=== PATIENT | female | born 1945 ===

== ENCOUNTER 2016-08-18 11:56 | Emergency (ER) | payer MEDICARE, OTHER ==
[2016-08-18 11:56] VITALS: BMI 13.3
--- NOTE | 2016-08-18 12:13 | C.PDOC ---
History Of Present Illness 70-year-old female, PMHx includes Hypertension, previous Colon cancer, Cholectomy x2, and Short Bowel Syndrome, presents to the emergency department accompanied by community fundraiser (acting as historian), with complaints of diffuse abdominal pain discomfort for the past few days. Patient notes associated nausea and non bloody watery diarrhea. She denies any fever, chills, vomiting, chest pain, shortness of breath or other complaints at this time. Time Seen by Provider: 08/18/16 12:09 Chief Complaint (Nursing): Abdominal Pain History Per: Family History/Exam Limitations: no limitations Onset/Duration Of Symptoms: Days Current Symptoms Are (Timing): Still Present Severity: Moderate Past Medical History Reviewed: Historical Data, Nursing Documentation, Vital Signs Vital Signs: Last Vital Signs Temp 98.5 F 08/18/16 18:49 Pulse 82 08/18/16 18:49 Resp 20 08/18/16 18:49 BP 136/73 08/18/16 18:49 Pulse Ox 100 08/18/16 18:49 - Medical History PMH: Anxiety, Arthritis, Depression, HTN, Obstructive Bowel Surgical History: Cholecystectomy - [facility] Procedures EXCISION INTERVERT DISC (09/08/99) OTHER NONOP RESPIRATORY MEASURE (03/09/00) Family History: States: No Known Family Hx - Social History Hx Alcohol Use: No Hx Substance Use: No - Immunization History Hx Tetanus Toxoid Vaccination: Yes Hx Influenza Vaccination: Yes Hx Pneumococcal Vaccination: Yes Review Of Systems Constitutional: Negative for: Fever, Chills Cardiovascular: Negative for: Chest Pain Respiratory: Negative for: Shortness of Breath Gastrointestinal: Positive for: Nausea, Abdominal Pain, Diarrhea. Negative for : Hematochezia, Hematemesis Musculoskeletal: Negative for: Back Pain Skin: Negative for: Rash Physical Exam - Physical Exam Appears: Non-toxic, No Acute Distress, Other (Cachectic. ) Skin: Warm, Dry Head: Atraumatic, Normacephalic Eye(s): bilateral: Normal Inspection Neck: Normal ROM Chest: Other (Port in right upper chest wall) Respiratory: No Accessory Muscle Use Gastrointestinal/Abdominal: Soft, Tenderness (Diffuse. ) Extremity: Normal ROM ED Course And Treatment - Laboratory Results Result Diagrams: 08/18/16 12:47 08/18/16 12:47 O2 Sat by Pulse Oximetry: 97 Medical Decision Making Medical Decision Making: Patient is requesting another dose of Benadryl and Morphine, prior to signing out AMA Leaving Against Medical Advice (AMA): This patient is choosing to leave against medical advice. I have personally explained to the pt that choosing to do so may result in permanent bodily harm or . I have discussed at great length that without further evaluation and monitoring there may be unforeseen circumstances and/or deterioration causing permanent bodily harm or as a result of their choice. The pt verbalized these risks back to the physician in laymans terms. The pt is alert, oriented, and shows the mental capacity to make clear decisions regarding the pts health care at this time. The pt continues to wish to leave against medical advice. Pt is aware of the importance of following up as instructed. The pt has been advised that they should return to the ED immediately if they change their mind at any time, or if their condition begins to change or worsen in any way. Disposition - Disposition Referrals: Gilbert Younger Jr., MD [Medical Doctor] - Disposition: AGAINST MEDICAL ADVICE Disposition Time: 17:29 Condition: IMPROVED Additional Instructions: Please follow up with your doctor. Return to the ER for any worsening symptoms or for any other concerns. Prescriptions: Ciprofloxacin HCl [Cipro] 500 mg PO BID #20 tablet Metronidazole [Flagyl] 500 mg PO TID #30 tablet Ondansetron ODT [Zofran ODT] 4 mg PO Q4H PRN #10 odt PRN Reason: Nausea/Vomiting Forms: Gen Discharge Inst Hebrew Print Language: CITIZEN OF [place] - Clinical Impression Clinical Impression: Abdominal pain, Colitis - Scribe Statement The provider has reviewed the documentation as recorded by the Sharon Schulte All medical record entries made by the Sharon were at my direction and personally dictated by me. I have reviewed the chart and agree that the record accurately reflects my personal performance of the history, physical exam, medical decision making, and the department course for this patient. I have also personally directed, reviewed, and agree with the discharge instructions and disposition.
[2016-08-18] MEDS ORDERED: DiphenhydrAMINE 50 mg/ml Inj IVP STA ×2 (12:30→17:28)
[2016-08-18] MEDS ORDERED: Sodium Chloride 0.9% 1,000 ML IV ONE (12:30)
[2016-08-18] MEDS ORDERED: Iohexol 240 (50 ml) PO ONE (12:30)
[2016-08-18 12:50] LABS: BASO % 0.1 % (0.0-2.0); EOS % 0.2 % (0.0-4.0); HEMATOCRIT 27.7 % (34.0-47.0); LYMPH # 0.7 K/uL (1.0-4.3); MEAN CORPUSCULAR HEMOGLOBIN 31.5 pg (27.0-31.0); MEAN CORPUSCULAR HGB CONC 33.4 g/dL (33.0-37.0); MEAN PLATELET VOLUME 7.2 fL (7.2-11.7); MONO # 1.6 K/uL (0.0-0.8); MONO % 14.9 % (0.0-10.0); PLATELET COUNT 222 K/uL (130-400); RED CELL DISTRIBUTION WIDTH 13.3 % (11.5-14.5)
[2016-08-18 12:52] LABS: MEAN CELL VOLUME 94.4 fL (81.0-99.0)
[2016-08-18 12:57] LABS: CHLORIDE 103 mmol/L (98-107)
[2016-08-18 12:58] LABS: POTASSIUM 2.6 mmol/L (3.6-5.2); SODIUM 135 mmol/L (132-148)
[2016-08-18 13:02] LABS: ALB/GLOB RATIO 1.1 (1.0-2.1); ALKALINE PHOSPHATASE 68 U/L (38-126); ALT/SGPT 26 U/L (9-52); AST/SGOT 30 U/L (14-36); BILIRUBIN,TOTAL 0.7 mg/dL (0.2-1.3); BLOOD UREA NITROGEN 14 mg/dL (7-17); CARBON DIOXIDE 23 mmol/L (22-30); GFR AFRICAN-AMERICAN > 60; GLUCOSE,RANDOM 81 mg/dL (65-105); TOTAL PROTEIN 5.7 g/dL (6.3-8.3)
[2016-08-18] MEDS ORDERED: DiphenhydrAMINE 50 mg/ml Inj ONE ×2 (13:03→17:42)
[2016-08-18] MEDS ORDERED: Sodium Chloride 0.9% 1,000 ML ONE ×2 (13:04→14:24)
[2016-08-18] MEDS ORDERED: Morphine 4 MG/ML VIAL ONE ×3 (13:04→17:43)
[2016-08-18] MEDS ORDERED: Iohexol 240 (50 ml) ONE (13:15)
[2016-08-18 13:19] LABS: NEUTROPHIL 71 % (50-75); TOTAL CELLS COUNTED 100
[2016-08-18] MEDS ORDERED: Potassium Chloride 20 mEq ER Tab PO STA (13:28)
[2016-08-18] MEDS ORDERED: Sodium Chloride 0.9% 500 ML IV ONE (14:30)
[2016-08-18] MEDS ORDERED: Sodium Chloride 0.9% 1,000 ML IV SCH (14:45)
--- NOTE | 2016-08-18 16:52 | CT ---
PROCEDURE: CT Abdomen and Pelvis without intravenous contrast HISTORY: abd pain COMPARISON: None. TECHNIQUE: Without contrast.. Contrast Dose: 0 Radiation dose: Total exam DLP = 200.53 mGy-cm. This CT exam was performed using one or more of the following dose reduction techniques: Automated exposure control, adjustment of the mA and/or kV according to patient size, and/or use of iterative reconstruction technique. FINDINGS: LOWER THORAX: Unremarkable. LIVER: Unremarkable. No gross lesion or ductal dilatation. GALLBLADDER AND BILE DUCTS: Status post cholecystectomy PANCREAS: Limited evaluation due to absent intravenous contrast, a paucity of retroperitoneal fat and beam hardening artifact arising from lumbar pedicle screws. No gross abnormality. SPLEEN: Unremarkable. ADRENALS: Unremarkable. No mass. KIDNEYS AND URETERS: Unremarkable. No hydronephrosis. No solid mass. VASCULATURE: Unremarkable. No aortic aneurysm. BOWEL: Dilated small bowel loops. There is oral contrast material seen within the colon. This makes it unlikely that the patient has a mechanical small-bowel obstruction. More likely, the dilated small bowel loops are secondary to adynamic ileus. The patient is status post right hemicolectomy. Patient has a dark prior gastric surgery. There is a surgical anastomosis in the transverse colon, towards the left side. There is very dilute contrast material seen within a very poorly distended rectosigmoid colon. Although evaluation is limited, there is suspicion of mural thickening and thumbprinting which may indicate inflammation or ischemia. Repeat evaluation in several hours is advised with additional oral contrast having entered the rectosigmoid colon, for better evaluation. APPENDIX: Not identified PERITONEUM: No ascites or pneumoperitoneum. LYMPH NODES: Unremarkable. No enlarged lymph nodes. BLADDER: Unremarkable. REPRODUCTIVE: Status post hysterectomy BONES: No acute fracture. Posterior fixation L1 through L5 with pedicle screws and vertical rods. No listhesis. OTHER FINDINGS: None. IMPRESSION: Grossly limited examination. Multiple dilated small bowel loops most likely secondary to adynamic ileus. Oral contrast passes from small to large intestine. Evidence of multiple prior bowel surgeries. Right hemicolectomy. Partial gastrectomy. Abnormal appearance of rectosigmoid colon with possible thumbprinting and mural thickening. Evaluation grossly limited. Recommend repeat evaluation in 2-3 hours so that additional oral contrast may opacify the rectosigmoid colon for better evaluation. No evidence of bowel perforation. Likely due to very limited amount of dilute contrast material within the colon.
[2016-08-18] MEDS ORDERED: metroNIDAZOLE IV 500 mg/100 ml 500 MG/100 ML BAG IVPB STA (17:17)
[2016-08-18] MEDS ORDERED: Ciprofloxacin 400mg/200ml D5W 400 MG/200 ML BAG IVPB STA (17:17)
[2016-08-18] MEDS ORDERED: Ciprofloxacin 400mg/200ml D5W 400 MG/200 ML BAG IVPB ONE (17:29)
[2016-08-18 18:37] VITALS: PULSE 82
[2016-08-18 18:51] VITALS: BP 136/73; RESP 20; TEMP 98.5
[2016-08-20 08:04] VITALS: O2SAT 97
== END 2016-08-18 18:51 | disposition left against medical advice (07) ==
LOC: C.ER 11:56
DX: R10.9 Unspecified abdominal pain (principal); K52.9 Noninfective gastroenteritis and colitis, unspecified; I10 Essential (primary) hypertension; Z85.038 Personal history of other malignant neoplasm of large intestine
CPT/HCPCS: 74176; 80053; 83690; 85025; 96361; 96365; 96375; 96376; 99285; J0744; J1200; J2270; J2405; J3480; J7040; Q9966

== ENCOUNTER 2016-08-20 15:11 | Emergency (ER) | payer MEDICARE, OTHER ==
[2016-08-20 15:11] VITALS: BMI 13.3
[2016-08-20] MEDS ORDERED: Sodium Chloride 0.9% 1,000 ML IV ONE (15:35)
--- NOTE | 2016-08-20 15:35 | C.PDOC ---
History Of Present Illness 70 y/o female presents to the ED with complains of abdominal cramping, diarrhea and lethargy x1 week. Pt states every time she eats she gets watery stool. Pt was seen 08/16 at [facility], offered admission and left AMA. Pt seen here at [facility] offered admission and left AMA. Denies fever, chills, chest pain, SOB or any other complaints. Time Seen by Provider: 08/20/16 15:21 Chief Complaint (Nursing): Abdominal Pain History Per: Patient History/Exam Limitations: no limitations Onset/Duration Of Symptoms: Days Current Symptoms Are (Timing): Still Present Severity: Moderate Location Of Pain/Discomfort: Diffuse Radiation Of Pain To:: None Quality Of Discomfort: Cramping Associated Symptoms: Diarrhea. denies: Fever, Chills, Nausea, Vomiting Alleviating Factors: None Recent travel outside of the [place]: No Past Medical History Reviewed: Historical Data, Nursing Documentation, Vital Signs Vital Signs: Last Vital Signs Temp 97.6 F 08/20/16 15:15 Pulse 90 08/20/16 15:15 Resp 14 08/20/16 15:15 BP 138/65 08/20/16 15:15 Pulse Ox 99 08/20/16 17:54 - Medical History PMH: Anxiety, Arthritis, Depression, HTN, Obstructive Bowel Surgical History: Cholecystectomy - [facility] Procedures EXCISION INTERVERT DISC (09/08/99) OTHER NONOP RESPIRATORY MEASURE (03/09/00) Family History: States: Unknown Family Hx - Social History Hx Alcohol Use: No Hx Substance Use: No - Immunization History Hx Tetanus Toxoid Vaccination: Yes Hx Influenza Vaccination: Yes Hx Pneumococcal Vaccination: Yes Review Of Systems Except As Marked, All Systems Reviewed And Found Negative. Constitutional: Negative for: Fever, Chills Cardiovascular: Negative for: Chest Pain Respiratory: Negative for: Shortness of Breath Gastrointestinal: Positive for: Abdominal Pain, Diarrhea. Negative for: Vomiting Physical Exam - Physical Exam Appears: Non-toxic, In Acute Distress (moderate), Other (lethargic) Skin: Warm, Dry, No Rash, Other (skin tenting) Head: Atraumatic, Normacephalic, Other (bitemporal wasting) Oral Mucosa: Dry Neck: Normal, Normal ROM, Supple Chest: Symmetrical Cardiovascular: Rhythm Regular, No Murmur Respiratory: Normal Breath Sounds, No Rales, No Rhonchi, No Wheezing Gastrointestinal/Abdominal: Soft, Tenderness (vague tenderness lower abdomen), Other (abdomen thin, hypermotile bowel sounds) Extremity: Other (lower extremities thin, no edema) Neurological/Psych: Oriented x3 ED Course And Treatment - Laboratory Results Result Diagrams: 08/20/16 16:10 08/20/16 16:10 Lab Interpretation: Abnormal (anemia, hypokalemia) ECG: Interpreted By Me ECG Rhythm: Sinus Rhythm ECG Interpretation: Normal Rate From EC (BPM) O2 Sat by Pulse Oximetry: 99 (room air) Pulse Ox Interpretation: Normal - Radiology CXR: Interpreted by Me CXR Interpretation: Yes: No Acute Disease - Other Rad abd x 2 X-Ray: Interpreted by Me (some bowel distention, and few air/fluid levels c/w diarrhea, no obst/FA), Read By Radiologist Progress Note: Plan: EKG, labs, XR abdomen, benadryl, flagyl, pepcid, zofran, potassium chloride, IV fluids Reevaluation Time: 17:12 Reassessment Condition: Improved - Physician Consult Information Outcome Of Conversation: 1540, 1700- d/w rajinder Jain to tele obs. d/w E[facility] Critical Care Time - Critical Care Note Total Time (in mins): 90 Documented critical care: time excludes all time spent performing seperately billable procedures. Medical Decision Making Medical Decision Making: colitis, bandemia, no other obvious source of infection multiple recent hospital evals and h/o bowel surgery, high risk for c-diff colitis' isolate and start Flagyl PO empirically dehydration and hypokalemia- repleat chronic pain: prefers pepcid, zofran, benadryl with morphine IV (no allergies) imaging CT abd/pelvis 08/16 and 08/18 not repeated today anemia- may be exacerbated when properely hydrated, consider transfusions if symptomatic hgb <8 Disposition Doctor Will See Patient In The: Hospital Counseled Patient/Family Regarding: Studies Performed, Diagnosis - Disposition Disposition: HOSPITALIZED Disposition Time: 17:14 Condition: FAIR - Clinical Impression Clinical Impression: Abdominal pain, Colitis, Dehydration, Hypokalemia, Anemia - Scribe Statement The provider has reviewed the documentation as recorded by the Sharon Ordonez Provider Attestation: All medical record entries made by the Scribe were at my direction and personally dictated by me. I have reviewed the chart and agree that the record accurately reflects my personal performance of the history, physical exam, medical decision making, and the department course for this patient. I have also personally directed, reviewed, and agree with the discharge instructions and disposition.
[2016-08-20] MEDS ORDERED: DiphenhydrAMINE 50 mg/ml Inj IVP STA ×2 (15:36→17:55)
[2016-08-20] MEDS ORDERED: DiphenhydrAMINE 50 mg/ml Inj ONE ×2 (16:11→18:12)
[2016-08-20] MEDS ORDERED: Sodium Chloride 0.9% 1,000 ML ONE (16:11)
[2016-08-20] MEDS ORDERED: Morphine 4 MG/ML VIAL ONE (16:11)
[2016-08-20 16:14] LABS: VENOUS BLOOD GAS BASE EXCESS -1.9 mmol/L (0.0-2.0); VENOUS BLOOD GAS PCO2 35 mmHg (40-60); VENOUS BLOOD PH 7.41 (7.32-7.43)
[2016-08-20 16:20] LABS: BASO % 0.2 % (0.0-2.0); EOS % 0.5 % (0.0-4.0); HEMATOCRIT 28.1 % (34.0-47.0); LYMPH # 1.1 K/uL (1.0-4.3); LYMPH % 17.5 % (20.0-40.0); MEAN CELL VOLUME 92.6 fL (81.0-99.0); MEAN CORPUSCULAR HEMOGLOBIN 31.1 pg (27.0-31.0); MEAN CORPUSCULAR HGB CONC 33.6 g/dL (33.0-37.0); MEAN PLATELET VOLUME 7.3 fL (7.2-11.7); MONO # 1.1 K/uL (0.0-0.8); MONO % 17.8 % (0.0-10.0); RED CELL DISTRIBUTION WIDTH 13.2 % (11.5-14.5); WHITE BLOOD COUNT 6.1 K/uL (4.8-10.8)
[2016-08-20 16:31] LABS: CHLORIDE 105 mmol/L (98-107); SODIUM 140 mmol/L (132-148)
[2016-08-20 16:34] LABS: ALB/GLOB RATIO 1.1 (1.0-2.1); ALKALINE PHOSPHATASE 68 U/L (38-126); ALT/SGPT 26 U/L (9-52); AST/SGOT 23 U/L (14-36); BILIRUBIN,TOTAL 0.6 mg/dL (0.2-1.3); BLOOD UREA NITROGEN 10 mg/dL (7-17); CARBON DIOXIDE 25 mmol/L (22-30); GFR AFRICAN-AMERICAN > 60; GLUCOSE,RANDOM 95 mg/dL (65-105); TOTAL PROTEIN 5.5 g/dL (6.3-8.3)
[2016-08-20 16:35] LABS: CALCIUM 8.2 mg/dl (8.6-10.4); POTASSIUM 2.2 mmol/L (3.6-5.2)
--- NOTE | 2016-08-20 17:34 | RAD ---
PROCEDURE: Radiographs of the chest and abdomen (obstructive series) 0 HISTORY: abd pain/diarreha COMPARISON: No prior. TECHNIQUE: AP radiograph of the chest, with upright and supine radiographs of the abdomen. FINDINGS: CHEST: Lungs: Hyperinflation, manifestations of COPD. No active pulmonary disease. Cardiovascular: No radiographic findings to suggest acute or significant cardiovascular disease. Venous access catheter in, satisfactory position. Pleura: No pleural fluid. No pneumothorax. Other findings: None. ABDOMEN AND PELVIS: Bowel: Unremarkable bowel gas pattern. No evidence of mechanical obstruction. Free air: None. Bones: Orthopedic hardware primarily inter pedicular screws and supporting rods identified. Other findings: None. IMPRESSION: No significant or acute findings to account for/ related to the clinical presentation.
[2016-08-20] MEDS ORDERED: Potassium Chloride 20 mEq/15 ml LIQ UD PO ONE (18:01)
[2016-08-20] MEDS ORDERED: Potassium Chloride 20 mEq/15 ml LIQ UD ONE (18:13)
[2016-08-20 18:22] LABS: RBC URINE 170 /hpf (0-3); URINE BILIRUBIN NEGATIVE (NEGATIVE); URINE BLOOD 3+ (NEGATIVE); URINE COLOR Yellow (YELLOW); URINE GLUCOSE (UA) NORMAL (Normal); URINE KETONE NEGATIVE (NEGATIVE); URINE LEUKOCYTE ESTERASE NEG Leu/uL (Negative); URINE PROTEIN 1+ mg/dL (NEGATIVE); URINE UROBILINOGEN NORMAL mg/dL (0.2-1.0); WBC URINE 1 /hpf (0-5)
[2016-08-20] MEDS ORDERED: Dextrose 5%/0.9% NS 1,000 ML IV ONE (19:43)
[2016-08-20] MEDS ORDERED: Oxycodone/Acetaminophen 5/325 mg Tab PO PRN (19:43)
--- NOTE | 2016-08-20 19:52 | CP.PCM.HP ---
History of Present Illness - History of Present Illness History of Present Illness: CC - "Abdominal pain" HPI - 70 y/o female presents to the ED with PmHx of Anxiety, Arthritis, Depression, HTN, Obstructive Bowel, colon cancer with complains of abdominal cramping, diarrhea and lethargy x1 week. She states that for the past week she has been having about 4-5 episodes of watery, non bloody diarrhea daily. She reports it being yellow to dark brown to black in color. She admits to generalized abdominal pain with associated nausea but no vomiting. Patient has a poor appetite and is refusing all PO medications. She was requesting pain meds to be given with Benadryl. Pt states every time she eats she gets watery stool. Pt was seen 08/16 at [place], offered admission and left AMA. Pt seen here at [facility] this offered admission and left AMA. Denies fever, chills , chest pain, palpitations, SOB, swelling pain in the extremities, numbness/ tingling or any other complaints. PMHx - Anxiety, Arthritis, Depression, HTN, Obstructive Bowel, colon cancer Meds - restoril 30 mg PO HS, trazadone 100 mg PO qd, Levothyroxine 150 mcg qd, Amlodipine 10mg PO daily, Percocet 2 tabs PO Q4 prn pain Allergies - NKDA (emr says otherwise but caretakes said no allergies) FamHx - mother had throat cancer Surg - hemicolectomy, many abd surg for "obstructions", r total knee replacement , lumbar fusion Social - denies drug, tobacco, alcohol use Present on Admission - Present on Admission Any Indicators Present on Admission: No Review of Systems - Constitutional Constitutional: absent: Fever - Cardiovascular Cardiovascular: absent: Chest Pain, Chest Pain at Rest, Diaphoresis, Pedal Edema , Syncope - Respiratory Respiratory: absent: Cough, Dyspnea, Dyspnea on Exertion - Gastrointestinal Gastrointestinal: Abdominal Pain, Diarrhea, Nausea. absent: Constipation, Vomiting - Genitourinary Genitourinary: absent: Change in Urinary Stream, Difficulty Urinating - Neurological Neurological: Weakness. absent: Dizziness, Numbness, Tingling - Psychiatric Psychiatric: Anxiety - Endocrine Endocrine: Fatigue. absent: Palpitations Past Patient History - Infectious Disease Hx of Infectious Diseases: None - Past Social History Smoking Status: Never Smoked - CARDIAC Hx Hypertension: Yes - PULMONARY Hx Respiratory Disorders: No - NEUROLOGICAL Hx Neurological Disorder: No - HEENT Hx HEENT Problems: No - RENAL Hx Chronic Kidney Disease: No - ENDOCRINE/METABOLIC Hx Endocrine Disorders: Yes Other/Comment: THYROIDECTOMY - HEMATOLOGICAL/ONCOLOGICAL Hx Blood Disorders: Yes Hx Cancer: Yes (colon) - INTEGUMENTARY Hx Dermatological Problems: No - MUSCULOSKELETAL/RHEUMATOLOGICAL Hx Arthritis: Yes - GASTROINTESTINAL Hx Gastrointestinal Disorders: Yes - GENITOURINARY/GYNECOLOGICAL Hx Genitourinary Disorders: No - PSYCHIATRIC Hx Anxiety: Yes Hx Depression: Yes Hx Substance Use: No - SURGICAL HISTORY Hx Cholecystectomy: Yes - ANESTHESIA Hx Anesthesia: Yes Meds Allergies/Adverse Reactions: Allergies Allergy/AdvReac Type Severity Reaction Status Date / Time acetaminophen [From Percocet] AdvReac Mild ITCHING Verified 08/18/16 11:59 morphine AdvReac Mild ITCHING Verified 08/18/16 11:59 oxycodone HCl [From Percocet] AdvReac Mild ITCHING Verified 08/18/16 11:59 Physical Exam - Constitutional Appears: Non-toxic, No Acute Distress, Cachectic, Chronically Ill - Head Exam Head Exam: ATRAUMATIC, NORMAL INSPECTION - Eye Exam Eye Exam: EOMI, Normal appearance, PERRL - ENT Exam ENT Exam: Mucous Membranes Dry - Respiratory Exam Respiratory Exam: Clear to Auscultation Bilateral, NORMAL BREATHING PATTERN. absent: Accessory Muscle Use, Prolonged Expiratory Phase, Wheezes, Respiratory Distress - Cardiovascular Exam Cardiovascular Exam: REGULAR RHYTHM, +S1, +S2 - GI/Abdominal Exam GI & Abdominal Exam: Normal Bowel Sounds, Soft, Tenderness. absent: Distended, Firm, Guarding - Extremities Exam Extremities exam: Positive for: normal inspection, pedal pulses present. Negative for: calf tenderness - Back Exam Back exam: NORMAL INSPECTION. absent: CVA tenderness (L), CVA tenderness (R), paraspinal tenderness - Neurological Exam Neurological exam: Alert, Oriented x3 - Psychiatric Exam Psychiatric exam: Normal Affect, Normal Mood - Skin Skin Exam: Dry, Intact, Normal Color, Warm Results - Vital Signs Recent Vital Signs: Last Vital Signs Temp 98.4 F 08/20/16 18:22 Pulse 87 08/20/16 18:22 Resp 18 08/20/16 18:22 BP 140/72 08/20/16 18:22 Pulse Ox 100 08/20/16 18:22 - Labs Result Diagrams: 08/20/16 16:10 08/20/16 16:10 Labs: Laboratory Results - last 24 hr 08/20/16 08/20/16 17:54 19:00 Magnesium 1.9 Urine Color Yellow Urine Clarity Hazy Urine pH 5.0 Ur Specific [place] 1.028 Urine Protein 1+ H Urine Glucose (UA) Normal Urine Ketones Negative Urine Blood 3+ H Urine Nitrate Negative Urine Bilirubin Negative Urine Urobilinogen Normal Ur Leukocyte Esterase Neg Urine WBC (Auto) 1 Urine RBC (Auto) 170 H Ur Squamous Epith Cells < 1 Hyaline Casts 6-10 H Assessment & Plan - Assessment and Plan (Free Text) Assessment: Hypokalemia Admit to telemetry for observation K= 2.2 Patient refusing oral potassium replacement f/u repeat K level tonight tonight EKG - T wave inversion. no acute changes Denies chest pain/palpitations VBG - mildly alkolytic likely due to volume depletion Mg - 1.9 f/u am labs Abdominal pain/Diarrhea f/u C.diff, stool leukocytes, stool culture, O/P f/u am labs OBx series - no acute pathology, no free air CT ABD/pelvis on 08/18 - multiple dilated small bowel loops, oral contrast passes from small to large intestine, right hemicolectomy, partial gastrectomy, no evidence of bowel perforation, limited study (please see full report) Dehydration and malnutrition D5NS at 125 cc/hour TPN to be ordered for tomorrow Anemia chronic Hgb - 9.5 f/u b12, folate,, fe studies, fobt receives B12 injections outpatient Hx colon cancer Hemcolectomy in the past with many abdominal surgeries Percocet 2 tabs PO Q4 prn pain Benadryl 25 mg PO Q6 prn pain Hypertension Controlled Amlodipine 10mg PO daily Hypothryoid Levothyroxine 150 mcg qd Insomnia restoril 30 mg PO HS, trazadone 100 mg PO qd Prophylaxis Pepcid Hold anticoagulation until FOBT negative SCDs Liquid diet until patient can tolerate
[2016-08-20 20:29] VITALS: BP 146/75; PULSE 82; RESP 16; TEMP 97.4; O2SAT 99
[2016-08-20] MEDS ORDERED: Morphine 4 MG/ML VIAL IV ONE (21:57)
[2016-08-21] MEDS ORDERED: Levothyroxine 150 MCG TAB PO SCH (06:30)
--- NOTE | 2016-08-21 07:00 | CP.PCM.DIS ---
Provider - Provider Date of Admission: 08/20/16 19:39 Attending physician: Gilbert Younger Jr, MD Consults: None Time Spent in preparation of Discharge (in minutes): 30 Hospital Course - Lab Results Lab Results: Micro Results 08/20/16 20:03 Stool Ova and Parasite Concentrate Exam - Final Most Recent Lab Values WBC 6.1 K/uL (4.8-10.8) 08/20/16 16:10 RBC 3.04 Mil/uL (3.80-5.20) L 08/20/16 16:10 Hgb 9.5 g/dL (11.0-16.0) L 08/20/16 16:10 Hct 28.1 % (34.0-47.0) L 08/20/16 16:10 MCV 92.6 fL (81.0-99.0) 08/20/16 16:10 MCH 31.1 pg (27.0-31.0) H 08/20/16 16:10 MCHC 33.6 g/dL (33.0-37.0) 08/20/16 16:10 RDW 13.2 % (11.5-14.5) 08/20/16 16:10 Plt Count 274 K/uL (130-400) 08/20/16 16:10 MPV 7.3 fL (7.2-11.7) 08/20/16 16:10 Neut % (Auto) 64.0 % (50.0-75.0) 08/20/16 16:10 Lymph % (Auto) 17.5 % (20.0-40.0) L 08/20/16 16:10 [place] % (Auto) 17.8 % (0.0-10.0) H 08/20/16 16:10 Eos % (Auto) 0.5 % (0.0-4.0) 08/20/16 16:10 Baso % (Auto) 0.2 % (0.0-2.0) 08/20/16 16:10 Neut # 3.9 K/uL (1.8-7.0) 08/20/16 16:10 Lymph # 1.1 K/uL (1.0-4.3) 08/20/16 16:10 [place] # 1.1 K/uL (0.0-0.8) H 08/20/16 16:10 Eos # 0.0 K/uL (0.0-0.7) 08/20/16 16:10 Baso # 0.0 K/uL (0.0-0.2) 08/20/16 16:10 pO2 35 mm/Hg (30-55) 08/20/16 16:08 VBG pH 7.41 (7.32-7.43) 08/20/16 16:08 VBG pCO2 35 mmHg (40-60) L 08/20/16 16:08 VBG HCO3 22.6 mmol/L 08/20/16 16:08 VBG Total CO2 23.3 mmol/L (22-28) 08/20/16 16:08 VBG O2 Sat (Calc) 72.6 % (40-65) H 08/20/16 16:08 VBG Base Excess -1.9 mmol/L (0.0-2.0) L 08/20/16 16:08 VBG Potassium 1.6 mmol/L (3.6-5.2) L* 08/20/16 16:08 Sodium 148.0 mmol/l (132-148) 08/20/16 16:08 Chloride 121.0 mmol/L (98-107) H 08/20/16 16:08 Glucose 75 mg/dl (65-105) 08/20/16 16:08 Lactate 1.1 mmol/L (0.7-2.1) 08/20/16 16:08 Crit Value Called To Dr. knott 08/20/16 16:08 Crit Value Called By Irwin ramirez 08/20/16 16:08 Crit Value Read Back Y 08/20/16 16:08 Blood Gas Notified Time 1613 08/20/16 16:08 Sodium 140 mmol/L (132-148) 08/20/16 16:10 Potassium 2.2 mmol/L (3.6-5.2) L* 08/20/16 16:10 Chloride 105 mmol/L (98-107) 08/20/16 16:10 Carbon Dioxide 25 mmol/L (22-30) 08/20/16 16:10 Anion Gap 12 (10-20) 08/20/16 16:10 BUN 10 mg/dL (7-17) 08/20/16 16:10 Creatinine 0.7 MG/DL (0.7-1.2) 08/20/16 16:10 Est GFR ( Amer) > 60 08/20/16 16:10 Est GFR (Non-Af Amer) > 60 08/20/16 16:10 Random Glucose 95 mg/dL (65-105) 08/20/16 16:10 Calcium 8.2 mg/dl (8.6-10.4) L 08/20/16 16:10 Magnesium 1.9 mg/dL (1.6-2.3) 08/20/16 19:00 Total Bilirubin 0.6 mg/dL (0.2-1.3) 08/20/16 16:10 AST 23 U/L (14-36) 08/20/16 16:10 ALT 26 U/L (9-52) 08/20/16 16:10 Alkaline Phosphatase 68 U/L (38-126) 08/20/16 16:10 Troponin I < 0.0120 ng/mL (0.00-0.120) 08/20/16 16:10 Total Protein 5.5 g/dL (6.3-8.3) L 08/20/16 16:10 Albumin 2.8 g/dL (3.5-5.0) L 08/20/16 16:10 Globulin 2.7 gm/dL (2.2-3.9) 08/20/16 16:10 Albumin/Globulin Ratio 1.1 (1.0-2.1) 08/20/16 16:10 Venous Blood Potassium 1.6 mmol/L (3.6-5.2) L* 08/20/16 16:08 Urine Color Yellow (YELLOW) 08/20/16 17:54 Urine Clarity Hazy (Clear) 08/20/16 17:54 Urine pH 5.0 (5.0-8.0) 08/20/16 17:54 Ur Specific [place] 1.028 (1.003-1.030) 08/20/16 17:54 Urine Protein 1+ mg/dL (NEGATIVE) H 08/20/16 17:54 Urine Glucose (UA) Normal mg/dL (Normal) 08/20/16 17:54 Urine Ketones Negative mg/dL (NEGATIVE) 08/20/16 17:54 Urine Blood 3+ (NEGATIVE) H 08/20/16 17:54 Urine Nitrate Negative (NEGATIVE) 08/20/16 17:54 Urine Bilirubin Negative (NEGATIVE) 08/20/16 17:54 Urine Urobilinogen Normal mg/dL (0.2-1.0) 08/20/16 17:54 Ur Leukocyte Esterase Neg [place]/uL (Negative) 08/20/16 17:54 Urine WBC (Auto) 1 /hpf (0-5) 08/20/16 17:54 Urine RBC (Auto) 170 /hpf (0-3) H 08/20/16 17:54 Ur Squamous Epith Cells < 1 /hpf (0-5) 08/20/16 17:54 Hyaline Casts 6-10 /lpf (0-2) H 08/20/16 17:54 Stool Leukocytes, Qual Negative (NEGATIVE) 08/20/16 20:03 C. difficile Ag & Toxin Positive (NEGATIVE) H 08/20/16 15:39 Discharge Exam - Head Exam Head Exam: ATRAUMATIC, NORMAL INSPECTION Discharge Plan - Follow Up Plan Condition: FAIR Disposition: AGAINST MEDICAL ADVICE
[2016-08-21] MEDS ORDERED: Enoxaparin 40 mg Syringe SC SCH (10:00)
[2016-08-21] MEDS ORDERED: Potassium Chloride 20 mEq ER Tab PO SCH (10:00)
--- NOTE | 2016-08-21 20:09 | CP.PCM.DIS ---
Provider - Provider Date of Admission: 08/20/16 19:39 Attending physician: Gilbert Younger Jr, MD Primary care physician: none Consults: none Time Spent in preparation of Discharge (in minutes): 10 (left AMA) Diagnosis - Discharge Diagnosis (1) Hx of malignant neoplasm of colon Status: Acute (2) HTN (hypertension) Status: Acute (3) Abdominal pain Status: Acute (4) Anemia Status: Acute (5) Hypokalemia Status: Acute Hospital Course - Lab Results Lab Results: Micro Results 08/20/16 20:03 Stool Ova and Parasite Concentrate Exam - Final Most Recent Lab Values WBC 6.1 K/uL (4.8-10.8) 08/20/16 16:10 RBC 3.04 Mil/uL (3.80-5.20) L 08/20/16 16:10 Hgb 9.5 g/dL (11.0-16.0) L 08/20/16 16:10 Hct 28.1 % (34.0-47.0) L 08/20/16 16:10 MCV 92.6 fL (81.0-99.0) 08/20/16 16:10 MCH 31.1 pg (27.0-31.0) H 08/20/16 16:10 MCHC 33.6 g/dL (33.0-37.0) 08/20/16 16:10 RDW 13.2 % (11.5-14.5) 08/20/16 16:10 Plt Count 274 K/uL (130-400) 08/20/16 16:10 MPV 7.3 fL (7.2-11.7) 08/20/16 16:10 Neut % (Auto) 64.0 % (50.0-75.0) 08/20/16 16:10 Lymph % (Auto) 17.5 % (20.0-40.0) L 08/20/16 16:10 Tompkins % (Auto) 17.8 % (0.0-10.0) H 08/20/16 16:10 Eos % (Auto) 0.5 % (0.0-4.0) 08/20/16 16:10 Baso % (Auto) 0.2 % (0.0-2.0) 08/20/16 16:10 Neut # 3.9 K/uL (1.8-7.0) 08/20/16 16:10 Lymph # 1.1 K/uL (1.0-4.3) 08/20/16 16:10 Tompkins # 1.1 K/uL (0.0-0.8) H 08/20/16 16:10 Eos # 0.0 K/uL (0.0-0.7) 08/20/16 16:10 Baso # 0.0 K/uL (0.0-0.2) 08/20/16 16:10 pO2 35 mm/Hg (30-55) 08/20/16 16:08 VBG pH 7.41 (7.32-7.43) 08/20/16 16:08 VBG pCO2 35 mmHg (40-60) L 08/20/16 16:08 VBG HCO3 22.6 mmol/L 08/20/16 16:08 VBG Total CO2 23.3 mmol/L (22-28) 08/20/16 16:08 VBG O2 Sat (Calc) 72.6 % (40-65) H 08/20/16 16:08 VBG Base Excess -1.9 mmol/L (0.0-2.0) L 08/20/16 16:08 VBG Potassium 1.6 mmol/L (3.6-5.2) L* 08/20/16 16:08 Sodium 148.0 mmol/l (132-148) 08/20/16 16:08 Chloride 121.0 mmol/L (98-107) H 08/20/16 16:08 Glucose 75 mg/dl (65-105) 08/20/16 16:08 Lactate 1.1 mmol/L (0.7-2.1) 08/20/16 16:08 Crit Value Called To Dr. knott 08/20/16 16:08 Crit Value Called By Irwin ramirez 08/20/16 16:08 Crit Value Read Back Y 08/20/16 16:08 Blood Gas Notified Time 1613 08/20/16 16:08 Sodium 140 mmol/L (132-148) 08/20/16 16:10 Potassium 2.2 mmol/L (3.6-5.2) L* 08/20/16 16:10 Chloride 105 mmol/L (98-107) 08/20/16 16:10 Carbon Dioxide 25 mmol/L (22-30) 08/20/16 16:10 Anion Gap 12 (10-20) 08/20/16 16:10 BUN 10 mg/dL (7-17) 08/20/16 16:10 Creatinine 0.7 MG/DL (0.7-1.2) 08/20/16 16:10 Est GFR ( Amer) > 60 08/20/16 16:10 Est GFR (Non-Af Amer) > 60 08/20/16 16:10 Random Glucose 95 mg/dL (65-105) 08/20/16 16:10 Calcium 8.2 mg/dl (8.6-10.4) L 08/20/16 16:10 Magnesium 1.9 mg/dL (1.6-2.3) 08/20/16 19:00 Total Bilirubin 0.6 mg/dL (0.2-1.3) 08/20/16 16:10 AST 23 U/L (14-36) 08/20/16 16:10 ALT 26 U/L (9-52) 08/20/16 16:10 Alkaline Phosphatase 68 U/L (38-126) 08/20/16 16:10 Troponin I < 0.0120 ng/mL (0.00-0.120) 08/20/16 16:10 Total Protein 5.5 g/dL (6.3-8.3) L 08/20/16 16:10 Albumin 2.8 g/dL (3.5-5.0) L 08/20/16 16:10 Globulin 2.7 gm/dL (2.2-3.9) 08/20/16 16:10 Albumin/Globulin Ratio 1.1 (1.0-2.1) 08/20/16 16:10 Venous Blood Potassium 1.6 mmol/L (3.6-5.2) L* 08/20/16 16:08 Urine Color Yellow (YELLOW) 08/20/16 17:54 Urine Clarity Hazy (Clear) 08/20/16 17:54 Urine pH 5.0 (5.0-8.0) 08/20/16 17:54 Ur Specific [place] 1.028 (1.003-1.030) 08/20/16 17:54 Urine Protein 1+ mg/dL (NEGATIVE) H 08/20/16 17:54 Urine Glucose (UA) Normal mg/dL (Normal) 08/20/16 17:54 Urine Ketones Negative mg/dL (NEGATIVE) 08/20/16 17:54 Urine Blood 3+ (NEGATIVE) H 08/20/16 17:54 Urine Nitrate Negative (NEGATIVE) 08/20/16 17:54 Urine Bilirubin Negative (NEGATIVE) 08/20/16 17:54 Urine Urobilinogen Normal mg/dL (0.2-1.0) 08/20/16 17:54 Ur Leukocyte Esterase Neg Kavon/uL (Negative) 08/20/16 17:54 Urine WBC (Auto) 1 /hpf (0-5) 08/20/16 17:54 Urine RBC (Auto) 170 /hpf (0-3) H 08/20/16 17:54 Ur Squamous Epith Cells < 1 /hpf (0-5) 08/20/16 17:54 Hyaline Casts 6-10 /lpf (0-2) H 08/20/16 17:54 Stool Leukocytes, Qual Negative (NEGATIVE) 08/20/16 20:03 C. difficile Ag & Toxin Positive (NEGATIVE) H 08/20/16 15:39 - Hospital Course Hospital Course: HPI - 70 y/o female presents to the ED with PmHx of Anxiety, Arthritis, Depression, HTN, Obstructive Bowel, colon cancer with complains of abdominal cramping, diarrhea and lethargy x1 week. She states that for the past week she has been having about 4-5 episodes of watery, non bloody diarrhea daily. She reports it being yellow to dark brown to black in color. She admits to generalized abdominal pain with associated nausea but no vomiting. Patient has a poor appetite and is refusing all PO medications. She was requesting pain meds to be given with Benadryl. Pt states every time she eats she gets watery stool. Pt was seen 08/16 at [place], offered admission and left AMA. Pt seen here at [facility], [place] earlier this offered admission and left AMA. Denies fever, chills , chest pain, palpitations, SOB, swelling pain in the extremities, numbness/ tingling or any other complaints. K= 2.2 in the ED/ Patient refused oral potassium replacement. EKG - T wave inversion. no acute changes. Denied chest pain/palpitations/ VBG was mildly alkolytic likely due to volume depletion. For abdominal pain and diarrhea patient was ordered for C.diff, stool leukocytes, stool culture, O/P. CT ABD/ pelvis on 08/18 showed multiple dilated small bowel loops, oral contrast passes from small to large intestine, right hemicolectomy, partial gastrectomy, no evidence of bowel perforation, limited study (please see full report). Patient left AMA overnight of first hospital day. Risks explained to patient by house doctor. Discharge Exam - Head Exam Additional comments: refused as per house doctor Discharge Plan - Follow Up Plan Condition: FAIR Disposition: AGAINST MEDICAL ADVICE
--- NOTE | 2016-08-24 12:49 | CARD ---
APPROVED REPORT EKG Measurement Heart [id number] <Conclusion> Normal sinus rhythm Nonspecific T wave abnormality Prolonged QT Abnormal ECG
== END 2016-08-20 22:30 | disposition left against medical advice (07) ==
LOC: C.ER 15:11 → C.9E 17:04 → UNDOADMOB 17:04 → OBSVTOIN 19:39 → INTOOBSV 19:39 → C.6T 21:24 → C.9E 21:24 → C.ER 22:30 → C.6T 22:39 → C.9E 22:39 → UNDODISIN 22:40
DX: K52.9 Noninfective gastroenteritis and colitis, unspecified (principal); E46 Unspecified protein-calorie malnutrition; D64.9 Anemia, unspecified; E86.0 Dehydration; E87.6 Hypokalemia; G89.29 Other chronic pain; Z85.038 Personal history of other malignant neoplasm of large intestine; I10 Essential (primary) hypertension; M19.90 Unspecified osteoarthritis, unspecified site; F41.9 Anxiety disorder, unspecified; F32.9 Major depressive disorder, single episode, unspecified; G47.00 Insomnia, unspecified
CPT/HCPCS: 74022; 80053; 81001; 82803; 83735; 84484; 85025; 87040; 87045; 87177; 87209; 87230; 87329; 89055; 93005; 96374; 96375; 96376; 99285; J1200; J2270; J2405; J3480; J7040; J7042

== ENCOUNTER 2017-11-17 06:30 | Day surgery (SDC) | payer MEDICARE, OTHER ==
[2017-11-17 07:48] VITALS: O2SAT 100
[2017-11-17] MEDS ORDERED: Propofol 10 mg/ml Inj (20 ML) ONE ×2 (08:18→08:19)
[2017-11-17] MEDS ORDERED: Midazolam 2 MG/2 ML VIAL ONE (08:19)
[2017-11-17 09:48] VITALS: TEMP 97
[2017-11-17 10:18] VITALS: PULSE 76
[2017-11-17 10:43] VITALS: BP 155/75; RESP 17
== END 2017-11-17 10:30 | disposition home or self-care (01) ==
LOC: C.ENDO 06:30
PROVIDERS: ATTEND Internal Medicine Gastroenterology
DX: K21.0 Gastro-esophageal reflux disease with esophagitis (principal); R13.10 Dysphagia, unspecified; K29.70 Gastritis, unspecified, without bleeding; D12.4 Benign neoplasm of descending colon; D12.5 Benign neoplasm of sigmoid colon; D12.3 Benign neoplasm of transverse colon
CPT/HCPCS: 43239; 45385; 88305; J2250; J2704; J7040